=== PATIENT | male | born 1960 | race Caucasian/White ===

== ENCOUNTER 2018-12-02 15:01 | Inpatient (IN) | payer MEDICAID ==
[~2018-12-02] VITALS: Ht 172.7 cm; Wt 88.5 kg
[~2018-12-02 15:01] MED LIST: AMOX-424 PO; SULF1TAB48 PO; VICODIN
[2018-12-02] MEDS ORDERED: FOLIC ACID 1 MG, THIAMINE HCL 100 MG, MVI, ADULT NO.1 10 ML in DEXTROSE 5% WATER 1,000 ML IV ONE ×4 (18:45)
[2018-12-02] MEDS ORDERED: ONDANSETRON HCL 4MG/2ML INJ IV ONE (18:45)
[2018-12-02 19:06] LABS: BASOPHILS % 1.2 % (0.0-2.0); EOSINOPHILS % 1.2 % (0.0-5.0); HEMATOCRIT. 40.7 % (42.0-52.0); HEMOGLOBIN. 13.6 g/dL (14.0-18.0); LYMPHOCYTES % 15.3 % (20.0-50.0); MEAN PLATELET VOLUME 8.7 fl (7.4-10.4); MONOCYTES % 7.9 % (2.0-8.0); NEUTROPHILS % 74.4 % (40.0-76.0); PLATELET 262 x1000/uL (130-400); RED BLOOD CELL COUNT 4.11 mill/uL (4.7-6.1); RED CELL DISTRIBUTION WIDTH 15.2 % (11.6-14.6)
[2018-12-02 19:10] LABS: CHLORIDE 103 mEq/L (98-107)
[2018-12-02] MEDS ORDERED: BACITRACIN ZINC OINT UDPKT TOP ONE (19:30)
[2018-12-02 19:35] LABS: ETHANOL BLOOD 305 mg/dL
[2018-12-02] MEDS ORDERED: FOLIC ACID 1 MG, MVI, ADULT NO.1 10 ML in DEXTROSE 5% WATER 1,000 ML IV SCH ×3 (21:00)
[2018-12-02] MEDS ORDERED: THIAMINE HCL 100MG TABLET PO SCH (21:00)
[2018-12-03] MEDS ORDERED: LORAZEPAM 2MG/ML CPJ IV ONE ×2 (07:45→11:15)
[2018-12-03] MEDS ORDERED: CHLORDIAZEPOXIDE 25MG CAPSULE PO ONE (07:45)
[2018-12-03] MEDS ORDERED: ONDANSETRON HCL 4MG/2ML INJ IV PRN (15:15)
[2018-12-03] MEDS ORDERED: IPRATROPIUM/ALBUTEROL 0.5-3(2.5)MG/3ML NEB INH PRN (15:15)
[2018-12-03] MEDS ORDERED: CLONIDINE 0.1MG TABLET PO PRN (15:15)
[2018-12-03] MEDS ORDERED: GUAIFENESIN 200MG/10ML SUGAR FREE UDC PO PRN (15:15)
[2018-12-03] MEDS ORDERED: MAGNESIUM/ALUMINUM HYDROXIDE/SIMETHICONE 30ML UDC PO PRN (15:15)
[2018-12-03] MEDS ORDERED: LORAZEPAM 2MG/ML CPJ IV PRN (15:15)
[2018-12-03] MEDS ORDERED: DOCUSATE SODIUM 100MG CAPSULE PO PRN (15:15)
[2018-12-03] MEDS ORDERED: ACETAMINOPHEN 325MG TABLET PO PRN (15:15)
[2018-12-03] MEDS ORDERED: NITROGLYCERIN 0.4MG TABLET SL SL PRN (15:15)
[2018-12-03] MEDS ORDERED: NA PHOS,M-B/NA PHOS,DI-BA ENEMA 118ML PR PRN (15:15)
[2018-12-03] MEDS ORDERED: KETOROLAC 15MG/ML VIAL IV PRN (15:15)
[2018-12-03 16:00] VITALS: BP 129/78
[2018-12-03 16:16] VITALS: BP 129/78
[2018-12-03 20:00] VITALS: BP 141/79
[2018-12-03] MEDS: SODIUM CHLORIDE 0.9% 1,000 ML IV SCH (20:50)
[2018-12-03] MEDS: ENOXAPARIN 30MG/0.3ML SYR SUBCUT SCH (22:41)
[2018-12-03] MEDS: CHLORDIAZEPOXIDE 25MG CAPSULE PO SCH (22:41)
[2018-12-04] VITALS: BP 117/70
[2018-12-04 04:00] VITALS: BP 140/85
[2018-12-04] MEDS: CHLORDIAZEPOXIDE 25MG CAPSULE PO SCH (05:55)
[2018-12-04 08:00] VITALS: BP 125/74
[2018-12-04] MEDS: FOLIC ACID 1MG TABLET PO SCH (10:22)
[2018-12-04] MEDS: MULTIVITAMINS,THER W-MINERALS TABLET PO SCH (10:22)
[2018-12-04] MEDS: THIAMINE HCL 100MG TABLET PO SCH (10:22)
[2018-12-04] MEDS: PANTOPRAZOLE SODIUM 40 MG/VIAL IV SCH (10:23)
[2018-12-04] MEDS: ENOXAPARIN 30MG/0.3ML SYR SUBCUT SCH ×2 (10:23→20:39)
[2018-12-04] MEDS: SODIUM CHLORIDE 0.9% 1,000 ML IV SCH (10:24)
[2018-12-04 11:36] VITALS: BP 143/84
[2018-12-04 20:00] VITALS: BP 158/87
[2018-12-04] MEDS: NEOMY SULF/BACITRAC ZN/POLY OINT 28GM TOP SCH (20:40)
[2018-12-05] VITALS: BP 121/66
[2018-12-05 04:00] VITALS: BP 137/82
[2018-12-05 08:00] VITALS: BP 128/70
[2018-12-05] MEDS: NEOMY SULF/BACITRAC ZN/POLY OINT 28GM TOP SCH (10:29)
[2018-12-05] MEDS: THIAMINE HCL 100MG TABLET PO SCH (10:30)
[2018-12-05] MEDS: ENOXAPARIN 30MG/0.3ML SYR SUBCUT SCH (10:30)
[2018-12-05] MEDS: MULTIVITAMINS,THER W-MINERALS TABLET PO SCH (10:30)
[2018-12-05] MEDS: FOLIC ACID 1MG TABLET PO SCH (10:31)
[2018-12-05] MEDS: PANTOPRAZOLE SODIUM 40 MG/VIAL IV SCH (10:31)
[2018-12-05] MEDS: SODIUM CHLORIDE 0.9% 1,000 ML IV SCH (10:31)
[2018-12-05] MEDS ORDERED: LEVOFLOXACIN 250MG TABLET PO SCH (11:00)
[2018-12-05 12:00] VITALS: BP 117/73
[2018-12-05 12:51] VITALS: BP_SYST 117; BP_SYST 131; BP_DIAS 71; BP_DIAS 73
[2018-12-06] MEDS ORDERED: FAMOTIDINE 20MG TABLET PO SCH (09:00)
== END 2018-12-05 16:35 | disposition home or self-care (01) | DRG 384 ==
LOC: ER 15:01 → 8WST 12-03 11:43 → ENRESERV 12-03 13:10
PROVIDERS: ADMIT Internal Medicine; ATTEND Internal Medicine
PROC: 0HQEXZZ Repair Left Lower Arm Skin, External Approach (ICD-10-PCS; principal; 2018-12-03)
DX: S51.012A Laceration without foreign body of left elbow, initial encounter (principal); G92 Toxic encephalopathy; F10.239 Alcohol dependence with withdrawal, unspecified; L97.519 Non-pressure chronic ulcer of other part of right foot with unspecified severity; F17.210 Nicotine dependence, cigarettes, uncomplicated; S01.21XA Laceration without foreign body of nose, initial encounter; L85.3 Xerosis cutis; G89.29 Other chronic pain; W19.XXXA Unspecified fall, initial encounter; Y90.8 Blood alcohol level of 240 mg/100 ml or more; M12.9 Arthropathy, unspecified; X58.XXXA Exposure to other specified factors, initial encounter; Y93.89 Activity, other specified; Y92.89 Other specified places as the place of occurrence of the external cause; Y99.8 Other external cause status; Z59.0 Homelessness; Z71.6 Tobacco abuse counseling; Z71.41 Alcohol abuse counseling and surveillance of alcoholic
CPT/HCPCS: 36415; 70486; 73080; 80048; 80307; 80329; 83036; 84134; 87077; 87186; 93970; 96365; 96366; 96375; 96376; 97162; 97166; 99285; C9113; G0482; J1650; J1885; J2060; J2405; J3411; J3490; J7030; J7070

== ENCOUNTER 2019-03-31 01:20 | Emergency (ER) | payer SELFPAY ==
[~2019-03-31] VITALS: Ht 177.8 cm; Wt 81.0 kg
[2019-03-31] MEDS ORDERED: SODIUM CHLORIDE 0.9% 1,000 ML IV ONE (06:31)
[2019-03-31 06:52] LABS: BASOPHILS % 0.7 % (0.0-2.0); HEMATOCRIT. 36.9 % (42.0-52.0); HEMOGLOBIN. 12.5 g/dL (14.0-18.0); LYMPHOCYTES % 38.5 % (20.0-50.0); MEAN CORPUSCULAR VOLUME 94.3 fL (80.0-94.0); MEAN PLATELET VOLUME 7.6 fl (7.4-10.4); MONOCYTES % 10.2 % (2.0-8.0); NEUTROPHILS % 45.6 % (40.0-76.0); PLATELET 199 x1000/uL (130-400); RED BLOOD CELL COUNT 3.92 mill/uL (4.7-6.1); RED CELL DISTRIBUTION WIDTH 13.4 % (11.6-14.6)
[2019-03-31 06:55] LABS: CHLORIDE 107 mEq/L (98-107)
[2019-03-31 07:00] LABS: ETHANOL BLOOD 264 mg/dL
[2019-03-31 10:57] LABS: CLARITY URINE CLEAR (CLEAR); COLOR URINE YELLOW (YELLOW); KETONES URINE 1+ (NEGATIVE); LEUKOCYTE ESTERASE URINE NEGATIVE (NEGATIVE); NITRITE URINE NEGATIVE (NEGATIVE); OCCULT BLOOD URINE NEGATIVE (NEGATIVE); PROTEIN URINE NEGATIVE (NEGATIVE); SPECIFIC GRAVITY URINE 1.007 (1.005-1.030); UROBILINOGEN URINE 0.2 E.U./dL (0.2-1.0)
[2019-03-31 11:18] LABS: *AMPHETAMINES SCREEN URINE NEGATIVE (NEGATIVE)
[2019-03-31 11:19] LABS: *BARBITURATES SCREEN URINE NEGATIVE (NEGATIVE); *BENZODIAZEPINES SCREEN URINE NEGATIVE (NEGATIVE); CANNABINOID URINE SCREEN NEGATIVE (NEGATIVE); METHADONE URINE SCREEN NEGATIVE (NEGATIVE); OPIATES URINE SCREEN NEGATIVE (NEGATIVE); PHENCYCLIDINE URINE SCREEN NEGATIVE (NEGATIVE)
[2019-03-31 11:20] LABS: *COCAINE SCREEN URINE NEGATIVE (NEGATIVE)
[2019-03-31 12:59] VITALS: BP 117/62
== END 2019-03-31 13:09 | disposition home or self-care (01) ==
LOC: ER 01:20
DX: S00.03XA Contusion of scalp, initial encounter (principal); F10.129 Alcohol abuse with intoxication, unspecified; W22.8XXA Striking against or struck by other objects, initial encounter; Y93.89 Activity, other specified; Y92.89 Other specified places as the place of occurrence of the external cause; Y99.8 Other external cause status
CPT/HCPCS: 36415; 70450; 80053; 80305; 80320; 81003; 82962; 85025; 99284; J7030; Z7610; A4315; G0480

== ENCOUNTER 2019-12-24 00:03 | Emergency (ER) | payer MEDICAID ==
[~2019-12-24] VITALS: Ht 167.6 cm; Wt 77.0 kg
[2019-12-24] MEDS ORDERED: SODIUM CHLORIDE 0.9% 1,000 ML IV ONE (03:17)
[2019-12-24 03:36] LABS: EOSINOPHILS % 5.1 % (0.0-5.0); HEMATOCRIT. 37.4 % (42.0-52.0); HEMOGLOBIN. 12.5 g/dL (14.0-18.0); LYMPHOCYTES % 40.6 % (20.0-50.0); MEAN CORPUSCULAR HEMOGLOBIN 33.1 pg (28.0-32.0); MEAN CORPUSCULAR VOLUME 99.2 fL (80.0-94.0); MEAN PLATELET VOLUME 7.8 fl (7.4-10.4); NEUTROPHILS % 43.3 % (40.0-76.0); PLATELET 163 x1000/uL (130-400); RED BLOOD CELL COUNT 3.77 mill/uL (4.7-6.1); RED CELL DISTRIBUTION WIDTH 16.3 % (11.6-14.6)
[2019-12-24 04:53] LABS: CHLORIDE 108 mEq/L (98-107)
[2019-12-24 05:03] LABS: ETHANOL BLOOD 299 mg/dL
[2019-12-24 12:01] VITALS: BP 120/70
== END 2019-12-24 12:02 | disposition home or self-care (01) ==
LOC: ER 00:03
DX: F10.129 Alcohol abuse with intoxication, unspecified (principal); Y90.8 Blood alcohol level of 240 mg/100 ml or more; D64.9 Anemia, unspecified; E11.9 Type 2 diabetes mellitus without complications; I10 Essential (primary) hypertension
CPT/HCPCS: 36415; 80048; 80320; 85025; 99283; J7030; G0480

== ENCOUNTER 2022-06-19 15:45 | Emergency (ER) | payer MEDICAID, OTHER ==
[~2022-06-19] VITALS: Ht 167.6 cm; Wt 78.0 kg
[2022-06-19 15:53] VITALS: BP 120/75
[2022-06-19] MEDS ORDERED: SODIUM CHLORIDE 0.9% 1,000 ML IV ONE (16:00)
== END 2022-06-19 17:43 | disposition left against medical advice (07) ==
LOC: ER 15:45
DX: F10.129 Alcohol abuse with intoxication, unspecified (principal); Y90.9 Presence of alcohol in blood, level not specified; R10.9 Unspecified abdominal pain; E11.9 Type 2 diabetes mellitus without complications; I10 Essential (primary) hypertension
CPT/HCPCS: 99281; J7030

== ENCOUNTER 2022-10-30 22:17 | Emergency (ER) | payer MEDICAID ==
[~2022-10-30] VITALS: Ht 167.6 cm; Wt 81.0 kg
[2022-10-30 22:20] VITALS: BP 153/83
[2022-10-31] MEDS ORDERED: IBUP-2028 MT (00:16)
== END 2022-10-31 03:43 | disposition home or self-care (01) ==
LOC: ER 22:30
DX: L97.529 Non-pressure chronic ulcer of other part of left foot with unspecified severity (principal); E11.9 Type 2 diabetes mellitus without complications; I10 Essential (primary) hypertension; F10.20 Alcohol dependence, uncomplicated; Y90.9 Presence of alcohol in blood, level not specified; Z98.890 Other specified postprocedural states
CPT/HCPCS: 99283

== ENCOUNTER 2022-11-09 18:24 | Emergency (ER) | payer MEDICAID ==
[~2022-11-09] VITALS: Ht 172.7 cm; Wt 63.0 kg
[~2022-11-09 18:24] MED LIST changes: -AMOX-424 PO; +IBUP-2028 MT; -SULF1TAB48 PO; -VICODIN
[2022-11-09 18:52] VITALS: BP 114/80
== END 2022-11-09 19:43 | disposition home or self-care (01) ==
LOC: ER 18:42
DX: E11.621 Type 2 diabetes mellitus with foot ulcer (principal); L97.529 Non-pressure chronic ulcer of other part of left foot with unspecified severity; I10 Essential (primary) hypertension
CPT/HCPCS: 99283

== ENCOUNTER 2024-08-31 11:54 | Emergency (ER) | payer MEDICAID, OTHER ==
[~2024-08-31] VITALS: Ht 175.3 cm; Wt 73.0 kg
[2024-08-31 11:59] VITALS: O2SAT 97
[2024-08-31 13:11] LABS: CLARITY URINE CLEAR (CLEAR); COLOR URINE YELLOW (YELLOW); GLUCOSE URINE NEGATIVE (NEGATIVE); KETONES URINE NEGATIVE (NEGATIVE); LEUKOCYTE ESTERASE URINE NEGATIVE (NEGATIVE); NITRITE URINE NEGATIVE (NEGATIVE); OCCULT BLOOD URINE NEGATIVE (NEGATIVE); PROTEIN URINE NEGATIVE (NEGATIVE); SPECIFIC GRAVITY URINE 1.013 (1.005-1.030)
[2024-08-31 13:20] LABS: BASOPHILS % 0.7 % (0.0-2.0); DIFFERENTIAL COMMENT 0; EOSINOPHILS % 1.3 % (0.0-5.0); HEMATOCRIT. 41.6 % (42.0-52.0); HEMOGLOBIN. 13.1 g/dL (14.0-18.0); LYMPHOCYTES % 18.5 % (20.0-50.0); MEAN CORPUSCULAR HEMOGLOBIN 31.9 pg (28.0-32.0); MEAN CORPUSCULAR HGB CONC 31.5 g/dL (31.0-37.0); MEAN CORPUSCULAR VOLUME 101.4 fL (80.0-94.0); MEAN PLATELET VOLUME 8.1 fl (7.4-10.4); MONOCYTES % 14.7 % (2.0-8.0); NEUTROPHILS % 64.8 % (40.0-76.0); PLATELET 251 x1000/uL (130-400); RED BLOOD CELL COUNT 4.11 mill/uL (4.7-6.1); RED CELL DISTRIBUTION WIDTH 16.7 % (11.6-14.6)
[2024-08-31 13:24] LABS: CHLORIDE 107 mEq/L (98-107); POTASSIUM 4.4 mEq/L (3.5-5.1); SODIUM 137 mEq/L (136-145)
[2024-08-31 13:25] LABS: CARBON DIOXIDE 24 mEq/L (21-32)
[2024-08-31 13:26] LABS: CALCIUM 9.3 mg/dL (8.7-10.4)
[2024-08-31] MEDS: SODIUM CHLORIDE 0.9% 1000ML BAG (SEPSIS BOLUS) IV ONE (13:26)
[2024-08-31] MEDS: VANCOMYCIN 1G PREMIX 200 ML IV ONE (13:26)
[2024-08-31] MEDS: PIPERACILLIN/TAZO 3.375G/50ML 50 ML IV ONE (13:26)
[2024-08-31 13:30] LABS: CREATININE 0.6 mg/dL (0.6-1.3); GLUCOSE 94 mg/dL (70-105); UREA NITROGEN BLOOD 6 mg/dL (9-23)
[2024-08-31 15:15] VITALS: TEMP 36.89184
[2024-08-31] MEDS: HYDRALAZINE 20MG/ML VIAL IV ONE (17:24)
[2024-08-31 17:28] VITALS: BP 138/84; PULSE 102; RESP 16; O2SAT 98
== END 2024-08-31 17:50 | disposition short-term general hospital (02) ==
LOC: ER 12:53
DX: L03.116 Cellulitis of left lower limb (principal); I49.9 Cardiac arrhythmia, unspecified; I10 Essential (primary) hypertension; E11.9 Type 2 diabetes mellitus without complications
CPT/HCPCS: 80048; 81003; 83605; 85025; 87040; 87086; 36415; 84145; 73630; 93005; 96368; 96365; 96366; 96375; 99291; J0360; J2543; J3370; J7030; Z7610; 99285